=== PATIENT | male | born 1950 | race Caucasian/White ===

== ENCOUNTER 2017-11-08 09:30 | Outpatient (CLI) | payer MEDICARE, OTHER | END 2017-11-08 09:31 | disposition home or self-care (01) | LOC: BICRAD 09:30 | PROVIDERS: ATTEND Urology | DX: N20.0 Calculus of kidney (principal) | CPT/HCPCS: 74018 ==

== ENCOUNTER 2018-12-31 11:01 | Inpatient (IN) | payer MEDICARE, OTHER ==
[2018-12-31 11:32] LABS: #Eosinphils 0.6 thou/uL (0.0-0.7); #Lymphocytes 1.5 thou/uL (1.20-3.40); #Monocytes 0.5 thou/uL (0.11-0.59); #Neutrophils 4.2 thou/uL (1.40-6.50); %Basophils 0.7 % (0.0-1.0); %Eosinophils 8.9 % (0.0-10.0); %Lymphocytes 21.5 % (21.0-51.0); %Monocytes 7.5 % (0.0-10.0); %Neutrophils 61.4 % (42.0-75.0); Hemoglobin 14.6 g/dL (14.0-18.0); Mean Corpuscular HGB CONC 33.1 g/dL (32.0-36.0); Mean Corpuscular Hemoglobin 29.9 pg (27.0-31.0); Mean Corpuscular Volume 90.4 fL (78.0-98.0); Mean Platelet Volume 7.3 fL (7.4-10.4); Platelet Count 303 thou/uL (130-400); RBC Distribution Width 11.7 % (11.5-14.5); White Blood Cell (WBC) Count 6.8 thou/uL (4.8-10.8)
[2018-12-31 11:50] LABS: ALT (SGPT) 17 U/L (8-55); AST (SGOT) 15 U/L (5-34); Albumin 3.9 g/dL (3.4-4.8); Alkaline Phosphatase 103 U/L (40-150); Anion Gap 11 mmol/L (10-20); BUN (Urea Nitrogen) 13 mg/dL (8.4-25.7); Bilirubin, Total 0.5 mg/dL (0.2-1.2); CK (CPK) 75 U/L (30-200); Calc. Creatinine Clearance 0 mL/min (70-130); Calcium 9.3 mg/dL (7.8-10.44); Carbon Dioxide 22 mmol/L (23-31); Chloride 110 mmol/L (98-107); Estimated GFR-MDRD 66; Globulin 2.8 g/dL (2.4-3.5); Glucose 103 mg/dL (80-115); Potassium 4.2 mmol/L (3.5-5.1); Protein, Total 6.7 g/dL (5.8-8.1); Sodium 139 mmol/L (136-145)
--- NOTE | 2018-12-31 12:10 | RAD ---
CHEST 1 VIEW: INDICATION: Chest pain. COMPARISON: Prior exam dated 11/19/2011. FINDINGS: There is hypoventilation that accentuates the cardiac size and pulmonary vasculature. No airspace co nsolidation or pleural effusion is evident. No pneumothorax is evident. No acute osseous abnormalit y is evident. IMPRESSION: No acute cardiopulmonary abnormality. POS: [facility]
[2018-12-31] MEDS ORDERED: Aspirin Chewable 81 MG TAB ONE (13:23)
[2018-12-31 14:26] LABS: Troponin I Less than 0.010 ng/mL (< 0.028)
[2018-12-31] MEDS ORDERED: ISOVUE-370 76%-LOCM 1 ML ONE (16:33)
[2018-12-31 17:19] LABS: Troponin I Less than 0.010 ng/mL (< 0.028)
[2018-12-31] MEDS ORDERED: Zolpidem Tartrate 5 MG TAB PO PRN (18:46)
[2018-12-31] MEDS ORDERED: Nitroglycerin 0.4 MG TAB (25 Tab Bottle) PO PRN (18:46)
[2018-12-31] MEDS ORDERED: Guaifenesin DM 100-10/5 ML UDCUP PO PRN (18:46)
[2018-12-31] MEDS ORDERED: Lorazepam 1 MG TAB PO PRN (18:46)
[2018-12-31] MEDS ORDERED: Ondansetron PF 4 MG/2 ML Vial IVP PRN (18:46)
[2018-12-31] MEDS ORDERED: Ondansetron ODT 4 MG TAB PO PRN (18:46)
[2018-12-31] MEDS ORDERED: Acetaminophen 650 MG Suppository PR PRN (18:46)
[2018-12-31] MEDS ORDERED: Senokot S 8.6-50 MG TAB PO PRN (18:46)
[2018-12-31] MEDS ORDERED: Acetaminophen 325 MG TAB PO PRN (18:46)
[2018-12-31] MEDS ORDERED: Enoxaparin Sodium 60 MG/0.6 ML SYRINGE ONE (20:24)
[2018-12-31] MEDS ORDERED: Enoxaparin Sodium 100 MG/ML SYRINGE ONE (20:24)
--- NOTE | 2018-12-31 20:53 | PDOC.EVN ---
Event Note - Event Note Event Note: D-dimer positive. CT angio done and showing bilateral pulmonary embolism. Lovenox 1mg/kg q12 hours started. Stress test d/c'd and pulm consult written for AM. Will check lower extremity ultrasound. Vitals stable so may be able to transition to oral anticoagulants tomorrow, otherwise will need to make inpatient status. ECHO also ordered. Pulm and Cardiology consults written for.
--- NOTE | 2018-12-31 20:54 | CT ---
CT ANGIO OF CHEST PERFORMED WITH INTRAVENOUS CONTRAST ENHANCEMENT WITH 3D RECONSTRUCTIONS: History: Chest pain and shortness of breath. FINDINGS: The lungs are clear of any infiltrative process. No pleural effusions. No significant mediastinal or hilar adenopathy and the thoracic aorta is normal in caliber. There is good pulmonary artery opacification and there is evidence of fairly extensive bilateral pulm onary emboli. This includes embolus involving the right upper lobe, segmental embolus involving the l eft lower lobe, also smaller emboli in the right lower lobe and perhaps some very subtle embolus in t he left upper lobe. Coronary artery calcifications are noted. Visualized liver parenchyma shows no focal findings. Gallbladder has been removed. Nonobstructing pun ctate left renal calculus is seen. Incidental note is also made of very small pericardial effusion. IMPRESSION: 1. Fairly extensive bilateral pulmonary emboli. Findings telephoned to Dr. Conway. 2. Extensive coronary artery calcifications. POS: [facility]
[2018-12-31] MEDS: Atorvastatin Calcium 40 MG TAB PO SCH (22:17)
--- NOTE | 2019-01-01 01:09 | HP ---
PRIMARY CARE PHYSICIAN: Luisa Olson MD CHIEF COMPLAINT: Dyspnea and chest pain. HISTORY OF PRESENT ILLNESS: This is a 68-year-old white male with a known history of coronary artery disease. He had acute myocardial infarction from an LAD lesion back in 2001, was found to have three-vessel coronary artery disease and nonsustained ventricular tachycardia, had a stent placed in his left anterior descending artery at that time by Dr. Galvan. He has not had any cardiac problems since then. The patient reports that, for the last few days, he has noticed himself breathing harder than normal. This was also noted by his friend when he is playing golf with him. He also has had some reflux, usually in the evenings, burning sensation substernally for the past 4 days, he sometimes will take some antacids for, but usually just goes to sleep and it resolves by itself. Today, he talked to his primary care physician about the increased dyspnea, and she recommended he go to the emergency room. When he was starting to go to the emergency room, he did feel kind of anxious about it and was worried about his heart, having another heart attack, and so he started to feel kind of anxious, breathe harder, and then has some mild left-sided chest pain. These resolved when he got to the emergency room. He has not had any other associated symptoms and is feeling his normal state right now. PAST MEDICAL HISTORY: 1. Coronary artery disease. 2. Hypertension. 3. Hyperlipidemia. 4. Chronic low back pain. PAST SURGICAL HISTORY: 1. Stent to the LAD. 2. Cholecystectomy. 3. Right knee replacement. PAST PSYCHIATRIC HISTORY: Anxiety. SOCIAL HISTORY: The patient denies tobacco or alcohol use. He does occasionally smoke marijuana for the last several months. He has been using a vaporizer to inhale marijuana about every 3 to 4 days. FAMILY HISTORY: Father had an acute [place] in his 50s, and some of his children have autoimmune diseases that are related to his mother side of the family. ALLERGIES: NO KNOWN DRUG ALLERGIES. CURRENT MEDICATIONS: 1. Aspirin 81 mg daily. 2. Zolpidem 10 mg at night. 3. Atorvastatin 40 mg daily. 4. Metoprolol tartrate 12.5 mg twice a day. 5. Gabapentin 600 mg daily. 6. Lorazepam 1 mg as needed. 7. Hydroxyzine 25 mg as needed. 8. Lisinopril 2.5 mg daily. 9. Celebrex 200 mg daily. 10. Extended release bupropion 300 mg daily. 11. Topiramate 50 mg daily. 12. Desvenlafaxine 50 mg daily. REVIEW OF SYSTEMS: CONSTITUTIONAL: No fevers. No chills. He has had about a 20-pound weight gain over the last 4 to 5 months. EYES: No double vision or blurred vision. ENT: No congestion, drainage, or sore throat. CARDIOVASCULAR: See HPI. No palpitations or racing heart. PULMONARY: No coughing or wheezing, just the dyspnea. GASTROINTESTINAL: No abdominal pain. No nausea or vomiting. He does have loose bowel movements occasionally after some meals, this has been going on for the last 1 to 2 years. No elvira diarrhea. No constipation. GENITOURINARY: No dysuria or hematuria. MUSCULOSKELETAL: He has chronic low back pain, but no other musculoskeletal complaints. SKIN: No rashes or other lesions noted. NEUROLOGIC: No numbness, tingling, or focal weakness. PHYSICAL EXAMINATION: VITAL SIGNS: Blood pressure 134/64, pulse 53, respirations 12, temperature 97.7 , and O2 saturation 100% on room air. GENERAL: This is a well-developed, obese white male, in no acute distress. HEENT: Pupils equal, round, and reactive to light. Oropharynx is clear without lesions, erythema, or exudate. NECK: Supple. No lymphadenopathy. No thyroid nodules or enlargement. No JVD. HEART: Regular rate and rhythm. No murmurs, rubs, or gallops. LUNGS: Clear to auscultation bilaterally. No wheezes, crackles, or rhonchi. ABDOMEN: Soft, obese, nontender to palpation. Normoactive bowel sounds. No hepatosplenomegaly or other masses. EXTREMITIES: No clubbing, cyanosis, or edema. SKIN: No rashes or other lesions noted. NEUROLOGIC: He has intact strength in all extremities. No facial droop. LABORATORY DATA: CBC within normal limits. Complete metabolic panel notable only for chloride of 110 and carbon dioxide of 22. The rest was normal. Troponin is negative x3, negative brain natriuretic peptide. Chest x-ray, I did review the chest x-ray done in the emergency room along with the radiologist's report, shows no cardiomegaly, no congestive changes, no infiltrates, no acute cardiopulmonary process. EKG done in the emergency room shows normal sinus rhythm, 62 beats per minute. No ST-segment changes. No T-wave changes. Normal EKG. ASSESSMENT: 1. Dyspnea on exertion and mild chest pain. The patient's dyspnea on exertion is concerning for possible anginal equivalent with his history of coronary artery disease; however, does seem a little bit erratic. He has been able to do some significant exercise with his rowing machine without any undue shortness of breath, but then doing light exercises huffing and puffing. We will go ahead and check a brain natriuretic peptide and D-dimer, which have not yet been done here , and then we will get an echocardiogram or a CTA should those be indicated by the results. We will schedule patient for a nuclear medicine stress test in the morning to rule out any obstructive coronary artery disease. Should all these be negative, then the patient can likely go home tomorrow with followup and further workup for the dyspnea with Pulmonary. 2. Hypertension. Resume the patient's lisinopril. Hold beta-gerardo for stress test. 3. Hyperlipidemia. Resume the patient's atorvastatin. 4. Anxiety. Resume patient's home medications. 5. Gastroesophageal reflux disease with recent acid reflux symptoms. We will start the patient on Protonix 20 mg daily. 6. Deep venous thrombosis prophylaxis. The patient on SCDs while in bed and encourage ambulation. 7. Code status. I did discuss with the patient. He is a full code. Should he be incapacitated, his daughters to be a medical decision makers. Their names are Sharon Adrian and Crista Adrian. Job ID: [id number] [facility]
[2019-01-01 03:41] LABS: #Basophils 0.1 thou/uL (0.0-0.2); #Eosinphils 0.7 thou/uL (0.0-0.7); #Lymphocytes 1.9 thou/uL (1.20-3.40); #Monocytes 0.7 thou/uL (0.11-0.59); %Basophils 0.9 % (0.0-1.0); %Eosinophils 9.7 % (0.0-10.0); %Lymphocytes 26.1 % (21.0-51.0); %Monocytes 9.6 % (0.0-10.0); %Neutrophils 53.7 % (42.0-75.0); Hemoglobin 13.9 g/dL (14.0-18.0); Mean Corpuscular HGB CONC 33.2 g/dL (32.0-36.0); Mean Corpuscular Hemoglobin 30.3 pg (27.0-31.0); Mean Corpuscular Volume 91.2 fL (78.0-98.0); Mean Platelet Volume 7.1 fL (7.4-10.4); Platelet Count 283 thou/uL (130-400); RBC Distribution Width 11.5 % (11.5-14.5); White Blood Cell (WBC) Count 7.4 thou/uL (4.8-10.8)
[2019-01-01 04:00] LABS: Anion Gap 10 mmol/L (10-20); BUN (Urea Nitrogen) 14 mg/dL (8.4-25.7); Calc. Creatinine Clearance 0 mL/min (70-130); Calcium 8.9 mg/dL (7.8-10.44); Carbon Dioxide 24 mmol/L (23-31); Chloride 109 mmol/L (98-107); Estimated GFR-MDRD 70; Glucose 92 mg/dL (80-115); Potassium 3.9 mmol/L (3.5-5.1); Sodium 139 mmol/L (136-145)
[2019-01-01] MEDS ORDERED: Aspirin 325 MG TAB ONE (09:18)
--- NOTE | 2019-01-01 09:26 | ULT ---
BILATERAL LOWER EXTREMITY VENOUS ULTRASOUND: HISTORY: Right lower extremity edema and bilateral pulmonary emboli. TECHNIQUE: Multiplanar hope-scale and color Doppler images were obtained in a bilateral lower extremity venous u ltrasound. Spectral analysis of the Doppler waveforms was performed. FINDINGS: The bilateral common femoral veins, profunda femoral veins, superficial femoral veins, and popliteal veins are normal in appearance without visible thrombus. These vessels demonstrate normal compressio n, flow, and augmentation. The posterior tibial vein and greater saphenous vein are also patent. IMPRESSION: No evidence of deep venous thrombosis. POS: [facility]
--- NOTE | 2019-01-01 09:35 | PDOC.PN ---
- Subjective Encounter Start Date: 01/01/19 Encounter Start Time: 13:00 Subjective: Patient without chest pain or sob at rest. No edema. No complaints. - Objective Resuscitation Status - Order Detail: 12/31/18 17:39 Resuscitation Status Routine Resuscitation Status: FULL: Full Resuscitation Discussed with: Patient CODY Reviewed: Yes Vital Signs & Weight: Vital Signs (12 hours) Pulse Ox 01/01/19 07:32 98 Result Diagrams: 01/01/19 03:24 01/01/19 03:24 Phys Exam - Physical Examination Constitutional: NAD HEENT: moist MMs Respiratory: no wheezing, no rales, no rhonchi Cardiovascular: RRR, no significant murmur Gastrointestinal: soft, positive bowel sounds Musculoskeletal: no edema Neurological: non-focal, moves all 4 limbs Psychiatric: normal affect, A&O x 3 Dx/Plan (1) Pulmonary embolism Code(s): I26.99 - OTHER PULMONARY EMBOLISM WITHOUT ACUTE COR PULMONALE Status : Acute Qualifiers: Chronicity: acute Comment: bilateral, on Lovenox, ECHO pending (2) Coronary artery disease Code(s): I25.10 - ATHSCL HEART DISEASE OF [place] CORONARY ARTERY W/O ANG PCTRS Status: Chronic Qualifiers: Coronary Disease-Associated Artery/Lesion type: [place] artery Comment: previous stent in LAD (3) Hypertension Code(s): I10 - ESSENTIAL (PRIMARY) HYPERTENSION Status: Chronic (4) Hyperlipidemia Code(s): E78.5 - HYPERLIPIDEMIA, UNSPECIFIED Status: Chronic (5) Generalized anxiety disorder Code(s): F41.1 - GENERALIZED ANXIETY DISORDER Status: Chronic Comment: on home meds - Plan cont current plan of care, out of bed/ambulate, DVT proph w/lovenox Pulmonology and Cardiology consults pending -: possibly home on oral anticoagulation today -: Daughter with Lupus and APS. Patient probably would benefit from Heme/Onc -: f/u outpatient. * . - Discharge Day Encounter end time: 13:10
--- NOTE | 2019-01-01 15:58 | CON ---
DATE OF CONSULTATION: HISTORY OF PRESENT ILLNESS: Alfredo Adrian is a 68-year-old gentleman, who has been in the ER for 48 hours, presented with about a week history of presumed shortness of breath without any associated chest pain, chills, sweats, or hemoptysis. Plays golf, very active. Friends noticed that he was getting a little bit more short of breath. He comes to the ER without any other symptoms except for dyspnea. His chest x-ray was otherwise normal. CT angio shows bilateral pulmonary emboli. He has injured his right ankle 6 months ago in May, but there is no additional swelling. No prior history of TB, pneumonia, or bronchial asthma. He did smoke at 1 time, but he quit smoking in 2001, following an acute myocardial infarction, he was found to have 3-vessel disease. He has several stents placed in. He has not lost any weight. PAST MEDICAL HISTORY: Coronary artery disease status post stent, hypertension, hyperlipidemia, and chronic back pain. PAST SURGICAL HISTORY: Previous surgeries; stent, gallbladder surgery, and knee surgery. HABITS: Tobacco, quit smoking in 2001. Alcohol, minimal. MEDICATIONS: List of medicine from home includes; 1. Ambien 10. 2. Zoloft 100. 3. Prozac 20. 4. Toprol-XL 12.5. 5. Melatonin 3. 6. Ativan p.r.n. 7. Lisinopril 2.5. 8. Hydrocodone. 9. Neurontin 600. 10. Folic acid. 11. Plavix 75. 12. Celebrex. 13. Wellbutrin 150. 14. Atorvastatin 40. 15. Aspirin. ALLERGIES: NONE. SOCIAL HISTORY: He is a security salesman. REVIEW OF SYSTEMS: Otherwise, 10-point negative. Incidentally, he had a colonoscopy 10 years ago, which was negative. PHYSICAL EXAMINATION: VITAL SIGNS: Blood pressure is 128/68, saturations are 98% on room air, temperature 96, and respiratory rate 16. CHEST: Decreased breath sounds. No wheezing. CARDIAC: Normal S1 and S2. No gallops. ABDOMEN: No masses. LABORATORY DATA: White count 7000, H and H 13 and 41, and platelet count is normal. D-dimer 3.4. Lytes are normal. Venogram done bilaterally shows no evidence of any deep venous thrombosis. His CT angio, which I personally reviewed shows evidence off bilateral pulmonary emboli. IMPRESSION: 1. Bilateral pulmonary emboli with no risk factors. 2. Obesity. 3. Hypertension. 4. Former smoker. 5. Coronary artery disease. 6. Anxiety. PLAN: Lovenox mg subcu q.12, 24 to 48 hours, switch over to Eliquis. Minimum 6 months of anticoagulation . We will follow. Consultation note, 70 minutes, 50% direct patient care. Job ID: [id number]
[2019-01-01] MEDS: Enoxaparin Sodium 120 MG/0.8 ML SYRINGE SC SCH ×2 (18:05→21:29)
[2019-01-01] MEDS: Bupropion 150 MG XL TAB PO SCH (18:06)
[2019-01-01] MEDS: Lisinopril 2.5 MG TAB PO SCH (18:06)
[2019-01-01] MEDS: CeleCOXIB 100 MG CAP PO SCH (18:06)
[2019-01-01] MEDS: Aspirin 325 mg Enteric Coated Tablet PO SCH (18:06)
[2019-01-01] MEDS: Pantoprazole 40 MG GRANULES PACKET PO SCH (18:07)
[2019-01-01] MEDS: Topiramate 25 MG TAB PO SCH (18:07)
[2019-01-01 18:10] VITALS: BMI 32.6
[2019-01-01] MEDS: Atorvastatin Calcium 40 MG TAB PO SCH (21:29)
--- NOTE | 2019-01-01 23:08 | CON ---
DATE OF CONSULTATION: 01/01/2019 INDICATION FOR CONSULTATION: A 68-year-old gentleman with history of coronary artery disease whom I saw back in 2001, at which time he was having acute anterior myocardial infarction. He presented to the emergency room and had ventricular tachycardia, was taken emergently to the cardiac laboratory administrative director where he was found to have 100% occlusion of the left anterior descending artery, who underwent angioplasty and stent placement. He at that time also was noted to have essentially 100% occlusion of the right coronary, which was seen filling distally from the left system. He has done relatively well prior to discharge. He was seen by the body liner in 2001 due to repeated couple episodes of nonsustained ventricular tachycardia. His ejection fraction, however, had improved about 50% with some mild hypokinesis of the anterior wall and he was not felt to be a candidate for an AICD and he was then discharged home. Over the last several years, he is not followed up in the office, but he continued just to see his primary care physician. In October 21 and , he had a long drive back from [place] and otherwise has been relatively active in playing golf and his friends knows that he became more short of breath. 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 He came to the emergency room due to increased shortness of breath and was noted by CT angiogram to have bilateral PE extensively and has been started on anticoagulation, so we were asked to see him due to his history of coronary artery disease in the past. There has been no indication that the patient had any DVTs at this time, and otherwise he denies any chest pain, but has been doing relatively well. PAST MEDICAL HISTORY: Significant for coronary artery disease as noted above. He has had a right knee replacement, bilateral cataract surgery, cholecystectomy, and gastroesophageal reflux disease. SOCIAL HISTORY: He smoked in the past and stopped at the time of his myocardial infarction. FAMILY HISTORY: Extensive history for coronary artery disease. ALLERGIES: NONE. MEDICATIONS: Prior to admission include, 1. Aspirin 81 mg a day. 2. Zolpidem. 3. Atorvastatin 40 mg a day. 4. Metoprolol 25 mg a day. 5. Gabapentin 600 mg once a day. He takes, 1. Lorazepam. 2. Hydroxyzine. 3. Lisinopril 2.5 mg a day. 4. Bupropion. 6. Topiramate 50 mg once a day. 7. He also takes Desvenlafaxine. ALLERGIES: NONE. REVIEW OF SYSTEMS: He complains of right ankle sprain back in May and continues to have some discomfort and some edema of the right ankle. Otherwise, no significant complaints. He has shortness of breath. Otherwise, 12-point review of systems is unremarkable. PHYSICAL EXAMINATION: GENERAL: Reveals a well-developed, well-nourished, middle-aged gentleman. VITAL SIGNS: Blood pressure 103/61, heart rate is 63 and regular. He is afebrile. Respiratory rate is about 16. HEENT: Shows the head to be normocephalic and atraumatic. Carotid pulses are present. There were no bruits and no JVD. The thyroid is not enlarged. Oral mucosa is pink and moist. CHEST: Clear to auscultation without rales, rhonchi, or wheezing. CARDIOVASCULAR: Reveals a regular rate and rhythm. He has normal S1 and S2. I did not hear an S3 or an S4. There is a very soft systolic murmur noted at the lower sternal border. Otherwise, there were no significant murmurs, heaves, thrills, bruits, or rubs. He has a very soft systolic murmur at the apex. ABDOMEN: Soft and nontender. Positive bowel sounds are present. I cannot palpate any masses or tenderness. EXTREMITIES: No clubbing, cyanosis, or edema. He does have some tenderness around the right ankle. NEUROLOGIC: The patient appears to be fully intact. LABORATORY DATA: His EKG shows normal sinus rhythm with no acute changes. He has undergone echocardiogram at this time. Ejection fraction appears to be relatively normal. The left atrium was slightly dilated. He has moderate mitral valve regurgitation and mild tricuspid valve regurgitation. The right ventricle did not appear to be significantly dilated and the full report will follow. IMPRESSION: A 68-year-old gentleman with bilateral extensive pulmonary emboli. He is being seen by the medical support assistant and has been started on Lovenox. 1. History of coronary artery disease which appears to be stable at this time. He has not had any recent stress test, but when he becomes more stable then perhaps he can undergo stress testing in the future. This is not the etiology of his pulmonary emboli. However, he has had no other symptoms from a cardiac standpoint. 2. Hypercholesterolemia. He will continue on his atorvastatin. At this time, we will continue to monitor the patient with you, but overall cardiac status appears to be stable at this time. Job ID: [id number] [facility]
[2019-01-02] MEDS: Aspirin 325 mg Enteric Coated Tablet PO SCH (09:03)
[2019-01-02] MEDS: Lisinopril 2.5 MG TAB PO SCH (09:03)
[2019-01-02] MEDS: Bupropion 150 MG XL TAB PO SCH (09:03)
[2019-01-02] MEDS: Topiramate 25 MG TAB PO SCH (09:04)
[2019-01-02] MEDS: Pantoprazole 40 MG GRANULES PACKET PO SCH (09:04)
[2019-01-02] MEDS: CeleCOXIB 100 MG CAP PO SCH (09:04)
[2019-01-02] MEDS: Enoxaparin Sodium 120 MG/0.8 ML SYRINGE SC SCH ×2 (09:05→21:41)
--- NOTE | 2019-01-02 09:22 | PDOC.PN ---
- Subjective Encounter Start Date: 01/02/19 Encounter Start Time: 10:50 Subjective: Patient feeling fine. Heavy breathing possibly a bit better. Ambulating -: hallway well. - Objective Resuscitation Status - Order Detail: 12/31/18 17:39 Resuscitation Status Routine Resuscitation Status: FULL: Full Resuscitation Discussed with: Keyonna ROSS Reviewed: Yes Vital Signs & Weight: Vital Signs (12 hours) Temp Pulse Resp BP BP Pulse Ox 01/02/19 09:03 72 01/02/19 08:59 97.9 F 72 18 109/60 94 L 01/02/19 04:35 97.7 F 61 18 96/51 L 92 L Weight Weight 233 lb 14.567 oz I&O: 01/01/19 01/02/19 01/03/19 06:59 06:59 06:59 Intake Total 0 Output Total 0 Balance 0 Result Diagrams: 01/01/19 03:24 01/01/19 03:24 Phys Exam - Physical Examination Constitutional: NAD HEENT: moist MMs Respiratory: no wheezing, no rales, no rhonchi, clear to auscultation bilateral Cardiovascular: RRR, no significant murmur Gastrointestinal: soft, positive bowel sounds Musculoskeletal: no edema Neurological: non-focal, moves all 4 limbs Psychiatric: normal affect, A&O x 3 Dx/Plan (1) Pulmonary embolism Code(s): I26.99 - OTHER PULMONARY EMBOLISM WITHOUT ACUTE COR PULMONALE Status : Acute Qualifiers: Chronicity: acute Comment: bilateral, on Lovenox, ECHO with normal EF, trivial pleural effusion (2) Coronary artery disease Code(s): I25.10 - ATHSCL HEART DISEASE OF [place] CORONARY ARTERY W/O ANG PCTRS Status: Chronic Qualifiers: Coronary Disease-Associated Artery/Lesion type: [place] artery Comment: previous stent in LAD (3) Hypertension Code(s): I10 - ESSENTIAL (PRIMARY) HYPERTENSION Status: Chronic (4) Hyperlipidemia Code(s): E78.5 - HYPERLIPIDEMIA, UNSPECIFIED Status: Chronic (5) Generalized anxiety disorder Code(s): F41.1 - GENERALIZED ANXIETY DISORDER Status: Chronic Comment: on home meds - Plan cont current plan of care transition to oral anticoagulants and d/c home when ok with pulmonology -: possibly tomorrow * . - Discharge Day Encounter end time: 11:00
--- NOTE | 2019-01-02 10:29 | PRG ---
DATE OF SERVICE: 01/02/2019 SUBJECTIVE: Alfredo Adrian is a 68-year-old gentleman. This morning, he is doing better. OBJECTIVE: VITAL SIGNS: O2 saturations 95% on room air, temperature 97, pulse 72, blood pressure is 109/66. CHEST: No wheezing or crackles. CARDIAC: Normal S1 and S2. No gallops. ABDOMEN: No masses. LABORATORY DATA: His venogram bilaterally showed no evidence of DVT. IMPRESSION: Bilateral pulmonary embolism, syncope, and obesity. PLAN: I will continue Lovenox for another 24 hours. He is eager to go home. If he remains stable tomorrow, I may consider discharging home on Eliquis for a minimum of six months. Job ID: [id number]
--- NOTE | 2019-01-02 12:05 | PDOC.CTH ---
Cardiology Progress Note - Subjective The pt seen and examined. No overnight events. No cardiac complaints. He walked 15-20 mins today without SOB or other cardiac complaints. - Objective Vital Signs Temp Pulse Resp BP BP Pulse Ox 01/02/19 09:03 72 01/02/19 08:59 97.9 F 72 18 109/60 96 01/02/19 04:35 97.7 F 61 18 96/51 L 92 L Weight 233 lb 14.567 oz 01/01/19 01/02/19 01/03/19 06:59 06:59 06:59 Intake Total 0 Output Total 0 Balance 0 - Physical Examination General/Neuro: alert & oriented x3 Neck: no JVD present Lungs: other: (diminshed at bases) Heart: RRR Abdomen: soft Extremities: other: (No edema) - Telemetry Telemetry Rhythm: SR - Labs Result Diagrams: 01/01/19 03:24 01/01/19 03:24 Troponin/CKMB Troponin I Less than 0.010 ng/mL (< 0.028) 12/31/18 16:32 - Assessment/Plan 1. Bilat PE - managed by reel cart operator 2. CAD with hx of stent placement in 2010 - On ASA 325mg qd and statin. Not on BBlocker for now 2/2 hypotensieve and s/p PE 3. HTN - stable 4. Hyperlipidemia - on Statin 5. Anxiety - stable MAR reviewed * From Cardiac standpoint, the pt is stable to d/c home when ok with Network Security Administrator. The pt refused to f/u with Dr Torres's office within 2wks. He will f /u with his PCP instead. Pt. seen and eval. by me. I agree with the A/P by the [facility]. Chest clear. RRR.I explained the importance of him following up with cardiology since he has 3 vessel CAD. He will discuss with his primary. Review of Systems - Review of Systems Constitutional: reports: no symptoms reported EENTM: reports: no symptoms reported Respiratory: reports: no symptoms reported Cardiac (ROS): reports: no symptoms reported ABD/GI: reports: no symptoms reported : reports: no symptoms reported Musculoskeletal: reports: no symptoms reported Skin: reports: no symptoms reported
[2019-01-02] MEDS: Atorvastatin Calcium 40 MG TAB PO SCH (21:41)
[2019-01-03] MEDS ORDERED: Non-Formulary Item 1 EACH (Desvenlafaxine Succinate [Pristiq] 50 MG) PO SCH (09:00)
[2019-01-03] MEDS: CeleCOXIB 100 MG CAP PO SCH (09:00)
[2019-01-03] MEDS ORDERED: Venlafaxine HCl XR 75 MG CAP PO SCH (09:00)
[2019-01-03] MEDS: Pantoprazole 40 MG GRANULES PACKET PO SCH (09:05)
[2019-01-03] MEDS: Topiramate 25 MG TAB PO SCH (09:05)
[2019-01-03] MEDS: Aspirin 325 mg Enteric Coated Tablet PO SCH (09:05)
[2019-01-03] MEDS: Bupropion 150 MG XL TAB PO SCH (09:05)
--- NOTE | 2019-01-03 09:05 | PDOC.PN ---
- Subjective Encounter Start Date: 01/03/19 Encounter Start Time: 11:00 Subjective: Patient ambulating well in the hospital. No more LEACH. No chest pain. -: Eager to go home. - Objective Resuscitation Status - Order Detail: 12/31/18 17:39 Resuscitation Status Routine Resuscitation Status: FULL: Full Resuscitation Discussed with: Keyonna ROSS Reviewed: Yes Vital Signs & Weight: Vital Signs (12 hours) Temp Pulse Resp BP Pulse Ox 01/03/19 07:13 97.8 F 18 95/51 L 95 01/03/19 04:58 98.3 F 71 14 101/61 95 Weight Weight 233 lb 14.567 oz I&O: 01/02/19 01/03/19 01/04/19 06:59 06:59 06:59 Intake Total 0 1470 Output Total 0 1180 Balance 0 290 Result Diagrams: 01/01/19 03:24 01/01/19 03:24 Phys Exam - Physical Examination Constitutional: NAD HEENT: moist MMs Respiratory: no wheezing, no rales, no rhonchi Cardiovascular: RRR, no significant murmur Gastrointestinal: soft, positive bowel sounds Neurological: non-focal, moves all 4 limbs Psychiatric: normal affect, A&O x 3 Dx/Plan (1) Pulmonary embolism Code(s): I26.99 - OTHER PULMONARY EMBOLISM WITHOUT ACUTE COR PULMONALE Status : Acute Qualifiers: Chronicity: acute Comment: bilateral, on Lovenox, ECHO with normal EF, trivial pleural effusion (2) Coronary artery disease Code(s): I25.10 - ATHSCL HEART DISEASE OF [place] CORONARY ARTERY W/O ANG PCTRS Status: Chronic Qualifiers: Coronary Disease-Associated Artery/Lesion type: [place] artery Comment: previous stent in LAD (3) Hypertension Code(s): I10 - ESSENTIAL (PRIMARY) HYPERTENSION Status: Chronic (4) Hyperlipidemia Code(s): E78.5 - HYPERLIPIDEMIA, UNSPECIFIED Status: Chronic (5) Generalized anxiety disorder Code(s): F41.1 - GENERALIZED ANXIETY DISORDER Status: Chronic Comment: on home meds - Plan cont current plan of care will transition to Eliquis 10mg BID for 1 week, then 5mg BID after that for -: at least 6 months -: home today if ok with Dr. Ryan * . - Discharge Day Encounter end time: 11:30
[2019-01-03] MEDS: Lisinopril 2.5 MG TAB PO SCH (09:08)
[2019-01-03] MEDS: Enoxaparin Sodium 120 MG/0.8 ML SYRINGE SC SCH (09:09)
--- NOTE | 2019-01-03 10:30 | PRG ---
DATE OF SERVICE: 01/03/2019 SUBJECTIVE: This morning, he is doing well, less short of breath, less cough. OBJECTIVE: VITAL SIGNS: Saturations are 98% on room air, temperature 97, and blood pressure 95/51. CHEST: Decreased breath sounds. No wheezing. CARDIAC: Normal S1 and S2. No gallops. ABDOMEN: No masses. IMPRESSION: 1. Status post pulmonary embolism. 2. Depression. 3. Hypertension. PLAN: Eliquis 10 twice a day, eventually 5 b.i.d. for six months. DISPOSITION: Home tomorrow. Job ID: [id number]
[2019-01-03] MEDS ORDERED: Apixaban 5 MG TAB PO SCH ×2 (11:30→21:00)
[2019-01-03 12:32] VITALS: BP 111/71; TEMP 97.9
[2019-01-03] MEDS ORDERED: hydrOXYzine 25 MG TAB PO SCH (21:00)
[2019-01-03] MEDS ORDERED: Gabapentin 300 MG CAP PO SCH (21:00)
--- NOTE | 2019-01-04 02:52 | DIS ---
DATE OF ADMISSION: 12/31/2018 DATE OF DISCHARGE: 01/03/2019 PRIMARY CARE PHYSICIAN: Luisa Olson MD REASON FOR ADMISSION: Dyspnea and chest pain. DIAGNOSES AT DISCHARGE: 1. Bilateral pulmonary embolism. 2. Stable coronary artery disease. 3. Hypertension. 4. Hyperlipidemia. 5. Generalized anxiety disorder. CONSULTANTS: 1. Cardiology, Dr. Galvan. 2. Pulmonology, Dr. Ryan. PROCEDURES: 1. CT angio of the chest and thorax showing extensive bilateral pulmonary emboli and extensive coronary artery calcifications. 2. Doppler ultrasound of the lower extremity showing no evidence for DVT. 3. Echocardiogram showing ejection fraction of 50% to 55%. with no significant abnormalities. SUMMARY OF HOSPITAL COURSE: This is a 68-year-old white male with a known history of coronary artery disease, had a stent placed in his LAD in 2001. He reported a few days of breathing harder than normal and then some reflux symptoms. The patient called his primary care doctor, who told him to come to the emergency room. He got very anxious on the way to the emergency room and started to feel some tingling types of left-sided chest pain. This resolved in the emergency room. In the ER, the patient had negative cardiac markers, negative EKG, and negative chest x-ray. He did have a D-dimer done which was elevated, so CT angio was done which showed bilateral pulmonary embolism. The patient was started on full-dose Lovenox. Cardiology and Pulmonology were consulted. The patient was on twice a day full-dose Lovenox. He had an echocardiogram with the above results. He was cleared for active cardiac issues by Dr. Galvan. Dr. Ryan treated him with Lovenox injections for a couple of days inpatient and today he is transitioned to oral Eliquis and is being discharged home. The patient had resolution of all dyspnea on exertion. He was ambulating very well in the hospital. He did not require any oxygen, had no more chest pain. On the day of discharge, he was cleared for discharge by Pulmonology. DISCHARGE MANAGEMENT: Location: Discharged home. Followup: Follow up with Dr. Ryan in 4 weeks and with his primary care physician in 1 week. Activity: As tolerated. Diet: Healthy heart low-sodium diet. MEDICATIONS: 1. Eliquis 5 mg tablets two tablets twice a day for 7 days followed by 1 tablet twice a day after that, 74 tablets dispensed. 2. Protonix 40 mg daily, 30 tablets dispensed. 3. Continue aspirin 81 mg daily. 4. Atorvastatin one tablet daily. 5. Bupropion 300 mg daily. 6. Celebrex 200 mg daily. 7. Pristiq 50 mg daily. 8. Gabapentin 600 mg at night. 9. Atarax 25 mg at night. 10. Lisinopril 2.5 mg daily. 11. Lorazepam 1 mg as needed for anxiety. 12. Metoprolol-XL 12.5 mg each night. Arranging the details of this discharge took 32 minutes. Job ID: [id number] MTDD
--- NOTE | 2019-01-05 17:13 | EKG ---
Test Reason : CHEST PAIN Blood Pressure : / mmHG Vent. Rate : 062 BPM Atrial Rate : 062 BPM P-R Int : 150 ms QRS Dur : 094 ms QT Int : 442 ms P-R-T Axes : 033 039 042 degrees QTc Int : 448 ms Normal sinus rhythm Normal ECG Confirmed by PATT LANIER, CIARA ([id number]), order editor DAMIEN TAN ([id number]) on 01/05/2019 5:12:44 PM Referred By: Confirmed By:CIARA BELTRE MD
== END 2019-01-03 15:00 | disposition home or self-care (01) | DRG 176 ==
LOC: ERS 11:01 → ERHOLD 13:10 → OBSVTOIN 13:10 → 2NO 01-01 17:09
PROVIDERS: ADMIT Internal Medicine; ATTEND Internal Medicine
DX: I26.99 Other pulmonary embolism without acute cor pulmonale (principal); I25.10 Atherosclerotic heart disease of native coronary artery without angina pectoris; I10 Essential (primary) hypertension; E78.5 Hyperlipidemia, unspecified; F41.1 Generalized anxiety disorder; G89.29 Other chronic pain; M54.5 Low back pain; I25.2 Old myocardial infarction; K21.9 Gastro-esophageal reflux disease without esophagitis; E66.9 Obesity, unspecified; F32.9 Major depressive disorder, single episode, unspecified; Z96.651 Presence of right artificial knee joint; Z90.49 Acquired absence of other specified parts of digestive tract; Z79.82 Long term (current) use of aspirin; Z87.891 Personal history of nicotine dependence; Z98.41 Cataract extraction status, right eye; Z98.42 Cataract extraction status, left eye; Z68.32 Body mass index [BMI] 32.0-32.9, adult
CPT/HCPCS: 36415; 71045; 71275; 80048; 80053; 82274; 82550; 83880; 84484; 85025; 85379; 93005; 93306; 93970; 94760; 96372; J1650; Q9966

== ENCOUNTER 2019-03-22 11:20 | Emergency (ER) | payer MEDICARE, OTHER ==
[~2019-03-22 11:20] MED LIST: ISOVUE-370 76%-LOCM 1 ML ONE
[2019-03-22 11:49] LABS: #Eosinphils 0.3 thou/uL (0.0-0.7); #Lymphocytes 1.5 thou/uL (1.20-3.40); #Monocytes 0.5 thou/uL (0.11-0.59); #Neutrophils 3.8 thou/uL (1.40-6.50); %Basophils 0.7 % (0.0-1.0); %Eosinophils 4.6 % (0.0-10.0); %Lymphocytes 24.4 % (21.0-51.0); %Neutrophils 62.3 % (42.0-75.0); Hemoglobin 15.2 g/dL (14.0-18.0); Mean Corpuscular Hemoglobin 31.7 pg (27.0-31.0); Mean Corpuscular Volume 90.6 fL (78.0-98.0); Mean Platelet Volume 7.3 fL (7.4-10.4); Platelet Count 299 thou/uL (130-400); RBC Distribution Width 11.9 % (11.5-14.5); Red Blood Cell (RBC) Count 4.79 mill/uL (4.70-6.10); White Blood Cell (WBC) Count 6.1 thou/uL (4.8-10.8)
[2019-03-22 12:00] LABS: INR-International Normal Ratio 1.1; PTT 35.5 SEC (22.9-36.1); Prothrombin Time 14.7 SEC (12.0-14.7)
[2019-03-22 12:42] LABS: ALT (SGPT) 22 U/L (8-55); AST (SGOT) 25 U/L (5-34); Albumin 4.2 g/dL (3.4-4.8); Alkaline Phosphatase 96 U/L (40-150); Anion Gap 12 mmol/L (10-20); BUN (Urea Nitrogen) 19 mg/dL (8.4-25.7); Bilirubin, Total 0.5 mg/dL (0.2-1.2); Calc. Creatinine Clearance 0 mL/min (70-130); Calcium 9.4 mg/dL (7.8-10.44); Carbon Dioxide 22 mmol/L (23-31); Chloride 110 mmol/L (98-107); Estimated GFR-MDRD 65; Globulin 2.9 g/dL (2.4-3.5); Glucose 83 mg/dL (80-115); Potassium 3.9 mmol/L (3.5-5.1); Protein, Total 7.1 g/dL (5.8-8.1); Sodium 140 mmol/L (136-145)
--- NOTE | 2019-03-22 13:28 | CT ---
Exam: CT angiogram of the chest HISTORY: Dyspnea COMPARISON: None TECHNIQUE: CT angiogram of the chest is performed in the axial plane. Three-dimensional reformatted i mages are submitted for interpretation FINDINGS: Mediastinum: No mass, lymphadenopathy or hematoma. HEART: Normal size. No significant pericardial fluid. There are coronary artery calcifications Aorta: No aneurysm or dissection Upper solid abdominal viscera: No abnormality enhancement. Surgically absent gallbladder. Trachea and central bronchi: Patent Pleural spaces: No effusion Lung parenchyma: No masses or consolidation. Pneumothorax: None Osseous structures: No lytic or blastic lesions Pulmonary arteries: Adequate contrast opacification pulmonary arterial system to the level of segment al arteries. No filling defect to suggest pulmonary embolism IMPRESSION:No evidence of pulmonary artery embolism to the level of segmental arteries.
== END 2019-03-22 13:50 | disposition home or self-care (01) ==
LOC: ERS 11:20
DX: R06.00 Dyspnea, unspecified (principal); I25.2 Old myocardial infarction; Z86.711 Personal history of pulmonary embolism; F41.9 Anxiety disorder, unspecified; F32.9 Major depressive disorder, single episode, unspecified; Z79.82 Long term (current) use of aspirin; Z79.899 Other long term (current) drug therapy
CPT/HCPCS: 71275; 80053; 83880; 84484; 85025; 85610; 85730; 93005; Q9966

== ENCOUNTER 2019-05-28 13:23 | Outpatient (CLI) | payer MEDICARE, OTHER ==
--- NOTE | 2019-05-28 14:44 | NM ---
VQ SCAN: HISTORY: Dyspnea, other pulmonary embolism without acute cor pulmonale TECHNIQUE: A ventilation/perfusion scan was performed using 8.6 mCi xenon-133 by inhalation for the ventilation study followed by the intravenous administration of 5.7 mCi technetium 99m-MAA for the perfusion scan. CORRELATION: Chest radiograph from same date. FINDINGS: No mismatched pleural-based, wedge-shaped, segmental or subsegmental perfusion defects are identified . A focal defect with stripe sign is seen in the left lung. There is tracer retention on the washout phase of the ventilation scan, compatible with COPD. IMPRESSION: Low probability for pulmonary embolism.
--- NOTE | 2019-05-28 15:20 | RAD ---
2 VIEW CHEST: Date: 05/28/19 INDICATION: Shortness of breath. Exam performed in conjunction with VQ scan. COMPARISON: 12/31/18. FINDINGS: Lungs appear clear. No infiltrate or vascular congestion. Heart size within normal range. Osseous str uctures unremarkable. IMPRESSION: No acute process identified. POS: [facility]
== END 2019-05-28 13:24 | disposition home or self-care (01) ==
LOC: NM 13:23
PROVIDERS: ATTEND Internal Medicine Pulmonary Disease
DX: I26.99 Other pulmonary embolism without acute cor pulmonale (principal)
CPT/HCPCS: 71046; 78582; A9540; A9558

== ENCOUNTER 2019-06-07 09:39 | Emergency (ER) | payer MEDICARE, OTHER ==
[2019-06-07 10:04] LABS: #Basophils 0.1 thou/uL (0.0-0.2); #Eosinphils 0.4 thou/uL (0.0-0.7); #Lymphocytes 1.7 thou/uL (1.20-3.40); #Monocytes 0.7 thou/uL (0.11-0.59); #Neutrophils 3.5 thou/uL (1.40-6.50); %Eosinophils 6.6 % (0.0-10.0); %Lymphocytes 26.2 % (21.0-51.0); %Monocytes 10.3 % (0.0-10.0); %Neutrophils 55.9 % (42.0-75.0); Hemoglobin 14.9 g/dL (14.0-18.0); Mean Corpuscular Hemoglobin 30.7 pg (27.0-31.0); Mean Corpuscular Volume 90.3 fL (78.0-98.0); Platelet Count 298 thou/uL (130-400); Red Blood Cell (RBC) Count 4.87 mill/uL (4.70-6.10); White Blood Cell (WBC) Count 6.3 thou/uL (4.8-10.8)
[2019-06-07 10:12] LABS: PTT 36.2 SEC (22.9-36.1); Prothrombin Time 13.4 SEC (12.0-14.7)
[2019-06-07 10:28] LABS: ALT (SGPT) 21 U/L (8-55); AST (SGOT) 15 U/L (5-34); Albumin 4.1 g/dL (3.4-4.8); Alkaline Phosphatase 106 U/L (40-150); Anion Gap 11 mmol/L (10-20); BUN (Urea Nitrogen) 11 mg/dL (8.4-25.7); Bilirubin, Total 0.2 mg/dL (0.2-1.2); CK (CPK) 98 U/L (30-200); Calc. Creatinine Clearance 0 mL/min (70-130); Calcium 9.3 mg/dL (7.8-10.44); Carbon Dioxide 21 mmol/L (23-31); Chloride 110 mmol/L (98-107); Estimated GFR-MDRD 63; Globulin 2.3 g/dL (2.4-3.5); Glucose 103 mg/dL (80-115); Magnesium 1.9 mg/dL (1.6-2.6); Potassium 4.4 mmol/L (3.5-5.1); Protein, Total 6.4 g/dL (5.8-8.1); Sodium 138 mmol/L (136-145)
--- NOTE | 2019-06-07 10:28 | CT ---
CT OF BRAIN PERFORMED WITHOUT CONTRAST ENHANCEMENT: History: Slurred speech and dizziness. Comparison: 01-03-16 FINDINGS: The ventricular and cisternal system is within normal limits. There are no signs of intracerebral hem orrhage or extraaxial fluid collections. The mastoid air cells and visualized sinuses are clear. IMPRESSION: No acute intracranial abnormalities. POS: [facility]
--- NOTE | 2019-06-07 10:29 | RAD ---
PORTABLE CHEST: History: Syncope. Comparison: 12-31-18 FINDINGS: Heart size and mediastinum within normal limits. The lungs are clear of infiltrates. No significant b karla findings. IMPRESSION: No active intrathoracic disease. POS: [facility]
== END 2019-06-07 11:05 | disposition home or self-care (01) ==
LOC: ERS 09:39
DX: R42 Dizziness and giddiness (principal); I25.2 Old myocardial infarction; Z86.711 Personal history of pulmonary embolism; F41.9 Anxiety disorder, unspecified; F32.9 Major depressive disorder, single episode, unspecified
CPT/HCPCS: 70450; 71045; 80053; 82550; 83735; 84484; 85025; 85610; 85730; 93005

== ENCOUNTER 2019-08-29 14:42 | Outpatient (CLI) | payer MEDICARE, OTHER ==
--- NOTE | 2019-08-29 16:32 | MRI ---
RI OF BRAIN WITH AND WITHOUT CONTRAST: 08/29/19 INDICATIONS: Sensorineural hearing loss. FINDINGS: There is no evidence of ventriculomegaly, mass effect, midline shift, or acute territorial infarction . There are no significant signal abnormalities of the brain parenchyma. There is no pathologic enhan cement or mass involving either CP angle cistern. No intra-axial enhancement is seen. Retention cyst is seen posteriorly within the right maxillary sinus. Skull base flow voids are patent, where visuali zed. IMPRESSION: 1. No acute intracranial abnormalities. 2. No pathologic enhancement or mass of either CP angle cistern. POS: [facility]
[2019-08-29] MEDS ORDERED: Magnevist 469MG/ML 20 ML VIAL ONE (17:07)
== END 2019-08-29 14:43 | disposition home or self-care (01) ==
LOC: BICMRI 14:42
PROVIDERS: ATTEND Otolaryngology Otolaryngic Allergy
DX: H90.3 Sensorineural hearing loss, bilateral (principal)
CPT/HCPCS: 70553; 82565; A9579

== ENCOUNTER 2019-10-07 15:26 | Outpatient (CLI) | payer MEDICARE, OTHER ==
[~2019-10-07 15:26] MED LIST changes: -ISOVUE-370 76%-LOCM 1 ML ONE; +Magnevist 469MG/ML 20 ML VIAL ONE
--- NOTE | 2019-10-07 17:02 | MRI ---
MRI Lumbar Spine with and without IV contrast: HISTORY: Low back pain. COMPARISON: 05/24/2016 obtained from [facility]. FINDINGS: The visualized retroperitoneal structures demonstrate a normal appearance. Conus medullaris is normal in morphology and terminates at the L1 level. Small focus of increased T1 and T2-weighted signal intensity seen in the L2 vertebral body as well as L5 vertebral body likely due to Schmorl's nodes. Mild endplate degenerative changes are seen at the L3-4 level posteriorly. T12-L1 level: There is no disc bulge or disc herniation. The central spinal canal and neural foramina are patent. L1-2: There is a minimal disc osteophyte complex with slight effacement of ventral aspect of thecal s ac. The neural foramina are patent. Minimal facet degenerative changes are noted. L2-3: There is mild loss of intervertebral disc height. Mild endplate degenerative changes are seen w ith Schmorl's nodes present. A mild disc osteophyte complex and facet degenerative changes are present. There is mild narrowing of the central spinal canal with mild right and minimal left-sided n eural foraminal narrowing. Findings have not significantly progressed when compared to the prior exam. L3-4: There is loss of intervertebral disc height. Schmorl's node is seen in the inferior endplate of the L3 vertebral body. There is a broad-based disc osteophyte complex again present with facet hypertrophic changes. There is mild narrowing of the central spinal canal with mild bilateral neural foraminal narrowing greater on the right. Findings are again similar to prior study. There is minimal enhancement seen at the posterior and right posterior lateral aspect L3-4 level which is like ly attributable to the degenerative changes. L4-5: There is a mild broad-based disc osteophyte complex with small central disc protrusion. There i s mild effacement of the ventral aspect of the thecal sac. Disc protrusion is slightly more prominent than on the prior exam. Facet hypertrophic changes are present at this level. Mild bilatera l neural foraminal narrowing is present greater on the right. L5-S1: There is loss of intervertebral disc height. A mild broad-based disc osteophyte complex is pre sent. This does encroach on but does not appear to displace the traversing bilateral S1 nerve roots. Mild facet hypertrophic changes are noted. There is mild to moderate right and moderate left-s ided neural foraminal narrowing. IMPRESSION: Multilevel degenerative changes.
== END 2019-10-07 15:27 | disposition home or self-care (01) ==
LOC: BICMRI 15:26
PROVIDERS: ATTEND Neurological Surgery
DX: M51.36 Other intervertebral disc degeneration, lumbar region (principal); M47.816 Spondylosis without myelopathy or radiculopathy, lumbar region
CPT/HCPCS: 72158; 82565; A9579

== ENCOUNTER 2020-03-11 12:13 | Outpatient (CLI) | payer MEDICARE, OTHER ==
[~2020-03-11 12:13] MED LIST changes: +Iopamidol 370 76% 100 ML VIAL ONE; -Magnevist 469MG/ML 20 ML VIAL ONE
--- NOTE | 2020-03-11 13:35 | CT ---
CT PULMONARY ANGIOGRAM WITH IV CONTRAST AND 3D POSTPROCESSING: HISTORY: Leg edema. FINDINGS: There is good contrast opacification of the pulmonary arterial vasculature without filling defects to suggest pulmonary embolism. No evidence of aneurysmal dilatation of the thoracic aorta is seen. No pleural or pericardial effusions are identified. No pneumothoraces, focal areas of consolidation, tomasa ng nodules or masses are seen. There are degenerative changes in the spine. Upper abdominal tomogra ms demonstrate postop changes of cholecystectomy. IMPRESSION: No CT evidence of pulmonary embolism. POS: [facility]
--- NOTE | 2020-03-11 14:11 | ULT ---
ULTRASOUND DOPPLER DUPLEX VENOUS LEFT LOWER EXTREMITY: DATE: 03/11/2020 HISTORY: 70-year-old male with bilateral lower extremity edema TECHNIQUE: Grayscale, color-flow, and spectral analysis, of major veins of left lower extremity. FINDINGS: There is demonstration of blood flow with normal compressibility, of the left common femoral, profund a femoral, greater saphenous, femoral, popliteal, and posterior tibial, veins. IMPRESSION: Negative. No deep venous thrombosis of left lower extremity.
== END 2020-03-11 12:14 | disposition home or self-care (01) ==
LOC: CT 12:13
PROVIDERS: ATTEND Family Medicine
DX: R60.0 Localized edema (principal)
CPT/HCPCS: 71275; 93970; Q9967

== ENCOUNTER 2020-08-13 15:22 | Outpatient (CLI) | payer MEDICARE, OTHER ==
--- NOTE | 2020-08-13 16:42 | MRI ---
EXAM: MRI left knee PROVIDED CLINICAL HISTORY: Pain COMPARISON: 07/20/2011 FINDINGS: The anterior cruciate ligament, posterior cruciate ligament, medial collateral ligament and lateral c ollateral ligamentous complex demonstrate an intact MR appearance, as does the extensor mechanism. There is a diminutive appearance to the body of the medial meniscus presumably reflecting postmenisce ctomy change. There is grade 3 signal demonstrated involving the body of the medial meniscus without evidence for meniscal displacement. The lateral meniscus appears normal. There is focal full-thickness articular cartilage loss involving the median ridge of the patella with irregularity of the surrounding articular cartilage. Femorotibial articular cartilage demonstrates no full-thickness defect. There is lateral patellar tilt. There is a physiologic amount of fluid within the knee joint. No focal concerning regional marrow or muscular signal abnormality is evident. IMPRESSION: 1. Patellar chondrosis. 2. Appearance of the medial meniscus as described.
== END 2020-08-13 15:23 | disposition home or self-care (01) ==
LOC: BICMRI 15:22
PROVIDERS: ATTEND Orthopaedic Surgery
DX: M17.32 Unilateral post-traumatic osteoarthritis, left knee (principal); M22.2X2 Patellofemoral disorders, left knee

== ENCOUNTER 2021-08-09 11:11 | Inpatient (IN) | payer MEDICARE, OTHER ==
[~2021-08-09 11:11] MED LIST changes: -Iopamidol 370 76% 100 ML VIAL ONE; +Iopamidol-370 76% 500 ML 1 ML ONE
[2021-08-09 12:28] LABS: #Basophils 0.1 thou/uL (0.0-0.2); #Eosinphils 0.7 thou/uL (0.0-0.7); #Lymphocytes 1.6 thou/uL (1.20-3.40); #Monocytes 0.6 thou/uL (0.11-0.59); %Basophils 0.9 % (0.0-1.0); %Eosinophils 10.3 % (0.0-10.0); %Lymphocytes 22.8 % (21.0-51.0); %Monocytes 8.2 % (0.0-10.0); %Neutrophils 57.8 % (42.0-75.0); Hemoglobin 15.4 g/dL (14.0-18.0); Mean Corpuscular HGB CONC 33.5 g/dL (32.0-36.0); Mean Corpuscular Hemoglobin 30.9 pg (27.0-31.0); Mean Corpuscular Volume 92.3 fL (78.0-98.0); Mean Platelet Volume 7.5 fL (7.4-10.4); Platelet Count 258 thou/uL (130-400); Red Blood Cell (RBC) Count 4.97 mill/uL (4.70-6.10)
[2021-08-09 13:06] LABS: ALT (SGPT) 16 U/L (8-55); AST (SGOT) 13 U/L (5-34); Albumin 3.9 g/dL (3.4-4.8); Alkaline Phosphatase 95 U/L (40-110); Anion Gap 13 mmol/L (10-20); BUN (Urea Nitrogen) 14 mg/dL (8.4-25.7); Bilirubin, Total 0.6 mg/dL (0.2-1.2); Calc. Creatinine Clearance 0 mL/min (70-130); Calcium 9.1 mg/dL (7.8-10.44); Carbon Dioxide 23 mmol/L (23-31); Chloride 111 mmol/L (98-107); Globulin 2.6 g/dL (2.4-3.5); Glucose 101 mg/dL (83-110); Potassium 4.7 mmol/L (3.5-5.1); Protein, Total 6.5 g/dL (5.8-8.1); Sodium 142 mmol/L (136-145)
[2021-08-09 14:44] LABS: INR-International Normal Ratio 1.1; PTT 33.8 sec (22.9-36.1); Prothrombin Time 13.9 sec (12.0-14.7)
[2021-08-09 16:01] LABS: SARS-CoV-2 NAA Rapid Test Not Detected (NotDetected)
[2021-08-09] MEDS ORDERED: Enoxaparin Sodium 100 MG/ML SYRINGE ONE (17:06)
[2021-08-09] MEDS ORDERED: Senokot S 8.6-50 MG TAB PO PRN (17:32)
[2021-08-09] MEDS ORDERED: Calcium Carbonate 500 MG ChewTAB PO PRN (17:32)
[2021-08-09] MEDS ORDERED: Ondansetron ODT 4 MG TAB PO PRN (17:32)
[2021-08-09] MEDS ORDERED: Acetaminophen 325 MG TAB PO PRN (17:32)
[2021-08-09] MEDS ORDERED: Zolpidem Tartrate 5 MG TAB PO PRN (17:41)
[2021-08-09 20:25] VITALS: BMI 31.7
[2021-08-09] MEDS ORDERED: Aspirin 81 mg Enteric Coated Tablet PO SCH ×2 (21:00→21:15)
[2021-08-09] MEDS ORDERED: Lorazepam 1 MG TAB PO PRN (21:44)
[2021-08-09] MEDS: Enoxaparin Sodium 100 MG/ML SYRINGE SC SCH (22:12)
[2021-08-09] MEDS: Atorvastatin Calcium 40 MG TAB PO SCH (22:12)
[2021-08-09] MEDS: Gabapentin 300 MG CAP PO SCH (22:13)
[2021-08-10 04:45] LABS: #Basophils 0.1 thou/uL (0.0-0.2); #Eosinphils 0.8 thou/uL (0.0-0.7); #Monocytes 0.7 thou/uL (0.11-0.59); #Neutrophils 3.9 thou/uL (1.40-6.50); %Basophils 0.7 % (0.0-1.0); %Eosinophils 10.6 % (0.0-10.0); %Lymphocytes 26.7 % (21.0-51.0); %Monocytes 9.4 % (0.0-10.0); %Neutrophils 52.6 % (42.0-75.0); Mean Corpuscular Hemoglobin 32.1 pg (27.0-31.0); Mean Corpuscular Volume 91.9 fL (78.0-98.0); Mean Platelet Volume 7.4 fL (7.4-10.4); Platelet Count 221 thou/uL (130-400); RBC Distribution Width 11.9 % (11.5-14.5); Red Blood Cell (RBC) Count 4.36 mill/uL (4.70-6.10); White Blood Cell (WBC) Count 7.5 thou/uL (4.8-10.8)
[2021-08-10 05:00] LABS: Hemoglobin A1c 5.4 % (4.0-6.0)
[2021-08-10 05:01] LABS: Anion Gap 14 mmol/L (10-20); BUN (Urea Nitrogen) 17 mg/dL (8.4-25.7); Calc. Creatinine Clearance 95 mL/min (70-130); Calcium 8.7 mg/dL (7.8-10.44); Carbon Dioxide 22 mmol/L (23-31); Cardiac Risk 4.5 (Less than 4.5); Chloride 109 mmol/L (98-107); Cholesterol 113 mg/dl (< 200 Desired); Glucose 96 mg/dL (83-110); HDL Cholesterol 25 mg/dL (>60 Neg Risk); LDL Cholesterol, Calculated 71 mg/dL; Potassium 3.6 mmol/L (3.5-5.1); Sodium 141 mmol/L (136-145); Triglycerides 83 mg/dL (Less than 150)
[2021-08-10] MEDS: Enoxaparin Sodium 100 MG/ML SYRINGE SC SCH ×2 (09:22→22:02)
[2021-08-10] MEDS: Lisinopril 2.5 MG TAB PO SCH (09:22)
[2021-08-10] MEDS ORDERED: Aspirin 81 mg Enteric Coated Tablet PO SCH (21:00)
[2021-08-10] MEDS: Atorvastatin Calcium 40 MG TAB PO SCH (21:59)
[2021-08-10] MEDS: Gabapentin 300 MG CAP PO SCH (21:59)
[2021-08-11 04:43] LABS: #Basophils 0.1 thou/uL (0.0-0.2); #Eosinphils 0.7 thou/uL (0.0-0.7); #Lymphocytes 1.9 thou/uL (1.20-3.40); #Monocytes 0.6 thou/uL (0.11-0.59); #Neutrophils 3.9 thou/uL (1.40-6.50); %Basophils 1.1 % (0.0-1.0); %Eosinophils 10.2 % (0.0-10.0); %Lymphocytes 25.7 % (21.0-51.0); %Monocytes 8.8 % (0.0-10.0); %Neutrophils 54.2 % (42.0-75.0); Hemoglobin 13.9 g/dL (14.0-18.0); Mean Corpuscular Hemoglobin 32.1 pg (27.0-31.0); Mean Corpuscular Volume 91.5 fL (78.0-98.0); Mean Platelet Volume 7.7 fL (7.4-10.4); Platelet Count 241 thou/uL (130-400); RBC Distribution Width 11.7 % (11.5-14.5); Red Blood Cell (RBC) Count 4.32 mill/uL (4.70-6.10); White Blood Cell (WBC) Count 7.3 thou/uL (4.8-10.8)
[2021-08-11 05:24] LABS: Anion Gap 10 mmol/L (10-20); BUN (Urea Nitrogen) 16 mg/dL (8.4-25.7); Calc. Creatinine Clearance 88 mL/min (70-130); Calcium 8.3 mg/dL (7.8-10.44); Carbon Dioxide 23 mmol/L (23-31); Chloride 109 mmol/L (98-107); Glucose 128 mg/dL (83-110); Potassium 3.7 mmol/L (3.5-5.1); Sodium 138 mmol/L (136-145)
[2021-08-11 08:17] VITALS: BP 107/80; TEMP 98
[2021-08-11] MEDS ORDERED: Apixaban 5 MG TAB PO SCH (09:00)
[2021-08-11] MEDS: Lisinopril 2.5 MG TAB PO SCH (09:57)
== END 2021-08-11 11:16 | disposition home or self-care (01) | DRG 176 ==
LOC: ERS 11:11 → 2NO 16:10
PROVIDERS: ADMIT Internal Medicine; ATTEND Internal Medicine
DX: I26.93 Single subsegmental thrombotic pulmonary embolism without acute cor pulmonale (principal); I74.9 Embolism and thrombosis of unspecified artery; I10 Essential (primary) hypertension; E78.5 Hyperlipidemia, unspecified; F17.210 Nicotine dependence, cigarettes, uncomplicated; M19.90 Unspecified osteoarthritis, unspecified site; Z96.651 Presence of right artificial knee joint; F32.A Depression, unspecified; I25.10 Atherosclerotic heart disease of native coronary artery without angina pectoris; G89.29 Other chronic pain; M54.2 Cervicalgia; G62.9 Polyneuropathy, unspecified; Z20.822 Contact with and (suspected) exposure to COVID-19; F41.1 Generalized anxiety disorder; Z86.711 Personal history of pulmonary embolism; I25.2 Old myocardial infarction; Z90.49 Acquired absence of other specified parts of digestive tract; Z95.5 Presence of coronary angioplasty implant and graft; Z79.82 Long term (current) use of aspirin; Z79.899 Other long term (current) drug therapy
CPT/HCPCS: 36415; 71045; 71275; 80048; 80053; 80061; 83036; 83880; 84443; 84484; 85025; 85610; 85730; 93005; 93306; 96372; J1650; Q9967; U0002

== ENCOUNTER 2023-09-05 08:08 | Outpatient (CLI) | payer MEDICARE, OTHER | END 2023-09-05 08:09 | disposition home or self-care (01) | LOC: RAD 08:08 | PROVIDERS: ATTEND Internal Medicine Critical Care Medicine | DX: R06.00 Dyspnea, unspecified (principal); J98.4 Other disorders of lung | CPT/HCPCS: 71046 ==